=== PATIENT | male | born 1960 | race Caucasian/White ===

== ENCOUNTER 2022-06-24 07:26 | Emergency (ER) | payer OTHER ==
[~2022-06-24] VITALS: Ht 172.7 cm; Wt 108.8 kg
--- NOTE | 2022-06-24 07:57 | ED Upper Extremity ---
General Stated Complaint: FALL | RT ELBOW INJ Source: patient Exam Limitations: no limitations History of Present Illness Date Seen by Provider: Jun 24, 2022 Time Seen by Provider: 07:45 Initial Comments Patient is a 61-year-old male who presents to the emergency department with a chief complaint of right elbow pain. He was working at [employer], stepped on a mat that was laying over some water, slipped went down on his right elbow. He complains of discomfort there. 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 He states that all of the fingers of his right hand are numb except for his fifth finger. 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 He was able to get up and ambulate. He has never had issues with that hip replacement. He request that I look at the skin of his right buttock for bruising. Did not hit his head, no loss of consciousness. No other complaints of injury. Onset: just prior to arrival Severity: mild Pain/Injury Location: right elbow Method of Injury: fell Allergies and Home Medications Allergies Coded Allergies: No Known Drug Allergies (Unverified , 06/24/22) Patient Home Medication List Home Medication List Reviewed: Yes Review of Systems Constitutional: see HPI EENTM: no symptoms reported Respiratory: no symptoms reported Cardiovascular: no symptoms reported Genitourinary: no symptoms reported Musculoskeletal: joint pain (right elbow discomfort; right hip bruising) Skin: no symptoms reported All Other Systems Reviewed Negative Unless Noted: Yes Physical Exam Vital Signs Vital Signs - First Documented 06/24/22 07:45 Temp 36.4 Pulse 90 Resp 16 B/P (MAP) 167/90 (115) Pulse Ox 97 O2 Delivery Room Air Capillary Refill : Height, Weight, BMI Height: '" Weight: lbs. oz. kg; BMI Method: General Appearance: WD/WN, no apparent distress HEENT: PERRL/EOMI Neck: normal inspection Respiratory: no respiratory distress, no accessory muscle use Shoulder: normal inspection, non-tender, no evidence of injury, normal ROM Elbow/Forearm: normal inspection, non-tender (no bony point tenderness over the joint of the right elbow; no swelling or ecchymoses; distal NVI; patient has chronic numbness to the right hand - all fingers except the 5th; good chemical process operator, normal function right wrist), no evidence of injury, normal ROM, Right Wrist: Yes normal inspection, Yes non-tender, Yes no evidence of injury, Yes normal ROM Hand: normal inspection, non-tender, no evidence of injury, normal ROM, Right Neurologic/Tendon: normal motor functions, sensory deficit (subjective decreased sensation thumb through 4th finger (pre-existing the fall)) Neurologic/Psychiatric: alert, normal mood/affect, oriented x 3 Skin: normal color, warm/dry, other (ecchymoses noted to the right buttock - no open wounds) Progress/Results/Core Measures Results/Orders My Orders Orders - ANGELA WILLOUGHBY MD Elbow, Right, 3 Views (06/24/22 07:52) Vital Signs/I&O 06/24/22 06/24/22 07:45 08:48 Temp 36.4 36.4 Pulse 90 90 Resp 16 16 B/P (MAP) 167/90 (115) 150/88 Pulse Ox 97 97 O2 Delivery Room Air Room Air Diagnostic Imaging Diagonstic Imaging: Xray Comments right elbow xray: no fracture or dislocation (interpreted by me) [facility], [place] NAME: [facility] REC#: [id number] PT STATUS: REG ER : 1960 PHYSICIAN: ANGELA WILLOUGHBY MD ADMIT DATE: 06/24/22/ER Signed Date of Exam:06/24/22 ELBOW, RIGHT, 3 VIEWS Indication: Right elbow injury 3 views the right elbow show no fracture, dislocation or pathologic effusion. IMPRESSION: Unremarkable right elbow Dictated by: Dictated on workstation # [id number] Dict: 06/24/22842 Trans: 06/24/22842 TC [id number] Interpreted by: MOISES GALLEGOS MD Electronically signed by: MOISES GALLEGOS MD 06/24/22842 Departure Impression Primary Impression: Contusion of right elbow Qualified Codes: S50.01XA - Contusion of right elbow, initial encounter Additional Impression: contusion right buttock Disposition: 01 HOME, SELF-CARE Condition: Stable Departure-Patient Inst. Decision time for Depature: 07:56 Referrals: NO,LOCAL PHYSICIAN (PCP/Family) Primary Care Physician Patient Instructions: Contusion (DC) Add. Discharge Instructions: Ice pack to right elbow and right buttock 20min at a time 4-6 times a day to help with bruising and swelling, Over the counter tylenol or ibuprofen (take ibuprofen with food) as needed for discomfort/pain. Follow up with Occupational Health. Return to the Emergency Department for any new, concerning or emergent complaints. ANGELA WILLOUGHBY MD Jun 24, 2022 07:57
--- NOTE | 2022-06-24 08:45 | Diagnostic Imaging Report ---
Indication: Right elbow injury 3 views the right elbow show no fracture, dislocation or pathologic effusion. IMPRESSION: Unremarkable right elbow Dictated by: Dictated on workstation # [id number]
[2022-06-24 08:48] VITALS: BP 143/86
== END 2022-06-24 08:54 | disposition home or self-care (01) ==
LOC: ER 07:30
DX: S50.01XA Contusion of right elbow, initial encounter (principal); S30.0XXA Contusion of lower back and pelvis, initial encounter; W01.0XXA Fall on same level from slipping, tripping and stumbling without subsequent striking against object, initial encounter; Y92.512 Supermarket, store or market as the place of occurrence of the external cause
CPT/HCPCS: 73080